=== PATIENT | male | born 1960 | race Caucasian/White ===

== ENCOUNTER 2019-01-20 22:36 | Inpatient (IN) | payer OTHER ==
[2019-01-21] MEDS ORDERED: NACL 0.9% 3 ML SYG IV
[2019-01-21] MEDS ORDERED: ALBUTEROL/IPRATROPIUM (NEB) 3 ML AMP HHN
[2019-01-21] MEDS ORDERED: HYDROCODONE/APAP (5/325) TAB PO
[2019-01-21] MEDS ORDERED: ACETAMINOPHEN 325 MG TAB PO
[2019-01-21] MEDS ORDERED: ONDANSETRON 4 MG INJ IV
[2019-01-21] MEDS ORDERED: VANCOMYCIN IV PER PHARMACY XX
[2019-01-21] MEDS: CEFEPIME 1GM/50 ML (PMX) 50 ML IVPB ×3 (00:20→20:45)
[2019-01-21] MEDS: SOD CHLORIDE 0.9% 1,000 ML IV ×3 (00:20→19:09)
[2019-01-21] MEDS: HYDROCODONE/APAP (5/325) TAB PO ×4 (00:23→19:40)
[2019-01-21] MEDS: VANCOMYCIN HCL 1.5 GM in SOD CHLORIDE 0.9% 250 ML IVPB (01:30)
[2019-01-21 05:54] LABS: ADD MAN DIFF? NO
[2019-01-21 05:59] LABS: WHITE BLOOD COUNT 5.5 10^3/ul (4.8-10.8)
[2019-01-21 05:59] LABS: BASOPHILS % 0.5 % (0.0-2.0); EOSINOPHILS # 0.1 10^3/ul (0.0-0.5); EOSINOPHILS % 1.5 % (0.0-7.0); HEMATOCRIT 34.3 % (42.0-52.0); HEMOGLOBIN 11.6 g/dl (14.0-18.0); LYMPHOCYTES # 1.4 10^3/ul (0.8-2.9); LYMPHOCYTES % 26.2 % (15.0-51.0); MEAN CORPUSCULAR HEMOGLOBIN 29.7 pg (29.0-33.0); MEAN CORPUSCULAR HGB CONC 33.8 g/dl (32.0-37.0); MEAN CORPUSCULAR VOLUME 87.7 fl (82.0-101.0); MEAN PLATELET VOLUME 9.2 fl (7.4-10.4); MONOCYTE # 0.5 10^3/ul (0.3-0.9); MONOCYTES % 8.5 % (0.0-11.0); NEUTROPHIL # 3.5 10^3/ul (1.6-7.5); NEUTROPHILS % 62.9 % (39.0-77.0); PLATELET COUNT 201 10^3/UL (140-415); RED BLOOD COUNT 3.91 10^6/ul (4.70-6.10); RED CELL DISTRIBUTION WIDTH 12.6 % (11.5-14.5)
[2019-01-21 06:04] LABS: HEMOGLOBIN A1C 5.2 % (0-5.9)
[2019-01-21 06:33] LABS: ALANINE AMINOTRANSFERASE 30 IU/L (13-69); ALBUMIN 3.5 g/dl (3.3-4.9); ALBUMIN/GLOBULIN RATIO 1.29; ALKALINE PHOSPHATASE 103 IU/L (42-121); ANION GAP 7 (5-13); ASPARTATE AMINO TRANSFERASE 25 IU/L (15-46); BILIRUBIN,INDIRECT 0.6 mg/dl (0-1.1); BILIRUBIN,TOTAL 0.6 mg/dl (0.2-1.3); BLOOD UREA NITROGEN 25 mg/dl (7-20); CALCIUM 8.8 mg/dl (8.4-10.2); CARBON DIOXIDE 25 mmol/L (21-31); CHLORIDE 107 mmol/L (97-110); CHOL/HDL RATIO 4.2 RATIO; CHOLESTEROL 147 mg/dl (100-200); CREATININE 1.33 mg/dl (0.61-1.24); Estimated GFR 55 mL/min (>60); GLUCOSE 98 mg/dl (70-220); HDL CHOLESTEROL 35 mg/dl (28-71); LDL CHOLESTEROL,CALCULATED 86 mg/dl; PHOSPHORUS 3.9 mg/dl (2.5-4.9); POTASSIUM 4.1 mmol/L (3.5-5.1); SODIUM 139 mmol/L (135-144); TOTAL PROTEIN 6.2 g/dl (6.1-8.1); TRIGLYCERIDES 132 mg/dl (0-149)
[2019-01-21] MEDS: HEPARIN 5,000 UNIT/1 ML VIAL SC ×2 (08:48→20:47)
[2019-01-21] MEDS ORDERED: VANCOMYCIN HCL 1.5 GM in SOD CHLORIDE 0.9% 250 ML IVPB (23:00)
[2019-01-22] MEDS: VANCOMYCIN HCL 1.5 GM in SOD CHLORIDE 0.9% 250 ML IVPB (01:18)
[2019-01-22] MEDS: HYDROCODONE/APAP (5/325) TAB PO ×3 (01:49→15:50)
[2019-01-22] MEDS: SOD CHLORIDE 0.9% 1,000 ML IV ×2 (05:52→10:28)
[2019-01-22 08:01] LABS: CREATININE 0.88 mg/dl (0.61-1.24)
[2019-01-22 08:01] LABS: BLOOD UREA NITROGEN 14 mg/dl (7-20)
[2019-01-22] MEDS: HEPARIN 5,000 UNIT/1 ML VIAL SC (09:00)
[2019-01-22] MEDS: CEFEPIME 1GM/50 ML (PMX) 50 ML IVPB ×2 (09:00→09:34)
[2019-01-22] MEDS: DOCUSATE SODIUM 100 MG CAP PO (13:09)
[2019-01-22] MEDS: VANCOMYCIN 1 GM 250 ML IVPB (13:09)
[2019-01-22] MEDS: NICOTINE (21 MG/24 HR) PATCH TRANSDERM (15:46)
== END 2019-01-22 16:10 | disposition left against medical advice (07) | DRG 603 ==
LOC: PP2 22:36
DX: L02.413 Cutaneous abscess of right upper limb (principal); F11.10 Opioid abuse, uncomplicated; F19.10 Other psychoactive substance abuse, uncomplicated
CPT/HCPCS: 80053; 80061; 82565; 83036; 83735; 84100; 84520; 85025; 87081